=== PATIENT | male | born 1960 | race African-American/Black ===

== ENCOUNTER 2019-08-14 09:26 | Emergency (ER) | payer BC, OTHER ==
[~2019-08-14] VITALS: Ht 181.6 cm; Wt 74.8 kg
[2019-08-14 09:40] VITALS: BP 165/92
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
--- NOTE | 2019-08-14 11:06 | RAD ---
CT HEAD AND MAXILLOFACIAL WO dated 08/14/2019 9:40 AM Indication:.. Pain after injury, swelling. Comparison: No comparison is available. Technique: Contiguous axial imaging the head was performed from skull base to vertex. In addition, axial imaging the maxillofacial bones obtained with thin cut coronal and sagittal reconstruction. One or more of the following individualized dose reduction techniques were utilized for this examination: 1. Automated exposure control 2. Adjustment of the mA and/or kV according to patient size 3. Use of iterative reconstruction technique Findings: Ventricles and sulci are within normal limits for age. No midline shift or mass effect. Brain parenchyma is of normal attenuation. No hemorrhage or extra-axial collection. Posterior fossa and brainstem unremarkable. No acute calvarial abnormality. The maxillofacial bones show soft tissue swelling over the left cheek and nose. There is a mildly displaced fracture of the left nasal bone. The orbital eddy and maxillary eddy are intact. No additional fractures identified. Zygomatic arches are intact. Mandible is intact. Paranasal sinuses are grossly clear. There is minimal mucosal thickening of the bilateral maxillary, ethmoid and sphenoid sinuses. No air-fluid level. The ostiomeatal units and infundibula are patent. No bony destructive changes or periostitis. Mastoid air cells are clear. There is bilateral nasal turbinates hypertrophy with prominent alirio bullosa on the right. Spondylotic changes of the upper cervical spine. IMPRESSION: 1. No evidence of acute intracranial hemorrhage or mass. 2. Mildly displaced fracture of the left nasal bone. 3. Mild pansinus mucosal thickening. Electronically signed by: Bakari Durand MD (08/14/2019 11:03 AM) [facility] [place] [place]
[2019-08-14] MEDS ORDERED: IBUP-1007 PO (11:28)
[2019-08-14] MEDS ORDERED: HYDR-3164 PO (11:28)
== END 2019-08-14 11:38 | disposition home or self-care (01) ==
LOC: ER 09:26
DX: S02.2XXA Fracture of nasal bones, initial encounter for closed fracture (principal); Y08.89XA Assault by other specified means, initial encounter; Y93.89 Activity, other specified; Y92.89 Other specified places as the place of occurrence of the external cause; Y99.8 Other external cause status
CPT/HCPCS: 70450; 70486; 99284-25